=== PATIENT | male | born 1985 | race Caucasian/White ===

== ENCOUNTER 2019-02-12 15:24 | Emergency (ER) | payer MEDICAID ==
[~2019-02-12] VITALS: Wt 89.0 kg
[2019-02-12] MEDS ORDERED: SOD CHLORIDE 0.9% 1,000 ML IV STA (20:08)
[2019-02-12] MEDS ORDERED: KETOROLAC 15 MG INJ IV STA (20:08)
[2019-02-12] MEDS ORDERED: IBUP-1542 PO (21:29)
--- NOTE | 2019-02-12 22:00 | ERD ---
ER Documentation Chief Complaint Chief Complaint LEFT TOE PAIN HPI 33-year-old homeless man complains of generalized weakness today and falling. He states when he fell he injured his left foot but does not recall exactly how. He denies any direct trauma to the foot and denies any cars running over his foot. He has been ambulating today after the injury. He denies chest pain or shortness of breath, no vomiting or diarrhea, no blood per rectum or melena. ROS All systems reviewed and are negative except as per history of present illness. Medications Home Meds Active Scripts Ibuprofen* (Motrin*) 600 Mg Tab, 600 MG PO Q8 PRN for PAIN AND/OR INFLAMMATION, #30 TAB Prov:KAREEN PALMA MD 02/12/19 PMhx/Soc Medical and Surgical Hx: pt denies Medical Hx, pt denies Surgical Hx Hx Alcohol Use: No Hx Substance Use: Yes (MARIJUANA) Hx Tobacco Use: Yes Smoking Status: Current every day smoker FmHx Family History: No diabetes Physical Exam Vitals Vital Signs Date Temp Pulse Resp B/P (MAP) Pulse Ox O2 O2 Flow FiO2 Time Delivery Rate 02/12/19 98.1 78 18 127/76 100 Room Air 19:36 (93) 02/12/19 98.1 89 18 130/78 99 15:35 (95) Physical Exam Const: No acute distress appears dehydrated, afebrile HEENT: Dry mucous membranes, pink conjunctive a Resp: Clear to auscultation bilaterally Cardio: Regular rate and rhythm, no murmurs Abd: Soft, non tender, non distended. thank you Skin: No petechiae or rashes. Soft tissue edema to the dorsal aspect of both feet but no erythema, no abrasions, no lacerations noted Ext: No cyanosis, or edema. 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 Neur: Awake and alert x3, no focal deficits or facial asymmetry, pupils equal round reactive to light Psych: Normal Mood and Affect Result Diagram: 02/12/19201902/12/192019 Results 24 hrs Laboratory Tests Test 02/12/19 20:20 White Blood Count 10.5 10^3/ul Red Blood Count 4.28 10^6/ul Hemoglobin 13.3 g/dl Hematocrit 40.3 % Mean Corpuscular Volume 94.2 fl Mean Corpuscular Hemoglobin 31.1 pg Mean Corpuscular Hemoglobin Concent 33.0 g/dl Red Cell Distribution Width 12.5 % Platelet Count 218 10^3/UL Mean Platelet Volume 9.4 fl Immature Granulocytes % 0.400 % Neutrophils % 68.3 % Lymphocytes % 16.7 % Monocytes % 8.3 % Eosinophils % 6.0 % Basophils % 0.3 % Nucleated Red Blood Cells % 0.0 /100WBC Immature Granulocytes # 0.040 10^3/ul Neutrophils # 7.1 10^3/ul Lymphocytes # 1.8 10^3/ul Monocytes # 0.9 10^3/ul Eosinophils # 0.6 10^3/ul Basophils # 0.0 10^3/ul Nucleated Red Blood Cells # 0.0 10^3/ul Sodium Level 143 mmol/L Potassium Level 3.2 mmol/L Chloride Level 106 mmol/L Carbon Dioxide Level 30 mmol/L Anion Gap 7 Blood Urea Nitrogen 12 mg/dl Creatinine 0.68 mg/dl Est Glomerular Filtrat Rate mL/min > 60 mL/min Glucose Level 68 mg/dl Calcium Level 8.5 mg/dl Current Medications Medications Dose Sig/Bernardino Start Time Status Last (Trade) Ordered Route PRN Stop Time Admin Dose Reason Admin Sodium 1,000 ml @ Q1H STAT 02/12/19 DC 02/12/19 Chloride 1,000 mls/hr IV 20:08 20:29 02/12/19 21:07 Ketorolac 15 mg ONCE STAT 02/12/19 DC 02/12/19 Tromethamine IV 20:08 20:32 (Toradol) 02/12/19 20:09 [facility] IV line was established patient was placed on case monitor rhythm strip revealed a sinus rhythm at about 80 bpm with upright P and T waves. Patient was afebrile I administered 1 L normal saline IV for dehydration and Toradol 15 mg IV x1 for pain. Patient was also given food and drink here in the emergency department and tolerated p.o. without difficulty. Three-view x-ray of the left foot performed, read by me there is transverse minimally displaced fractures of the second through fifth metatarsal necks. Some osteoarthritic changes noted as well, no other fractures or dislocation noted. Patient is able to bear weight and ambulate although he does exhibit pain when doing so so we placed him in a posterior splint to the left lower extremity and secured it with all cotton elastic bandage circumferentially. Left lower extremity was also placed in an orthopedic shoe to help with ambulation. Splint Assessment: Neurovascularly intact post splint placement with good fit. Return precautions and follow-up outpatient instructions were provided to the patient, surgical intervention is unlikely although will be determined by PMD and orthopedic surgeon. He was given addresses and phone numbers to nearby clinics which can arrange management. Patient feels much better at this time, and vital signs are normal, symptoms have improved. I did give strict instructions to return to the ED if symptoms continue or worsen, patient will otherwise follow-up with primary care physician. Patient understood instructions and agreed to plan. Disclaimer: Inadvertent spelling and grammatical errors are likely due to EHR/dictation software use and do not reflect on the overall quality of patient care. Also, please note that the electronic time recorded on this note does not necessarily reflect the actual time of the patient encounter. Departure Diagnosis: Primary Impression: Metatarsal stress fracture of left foot Encounter type: initial encounter Qualified Codes: M84.375A - Stress fracture, left foot, initial encounter for fracture Additional Impression: Dehydration Condition: Good Patient Instructions: Fracture, Foot KAREEN PALMA MD Feb 12, 2019 22:00
[2019-02-12] MEDS ORDERED: OXYC-279 PO (22:35)
[2019-02-12 22:42] VITALS: BP 115/59; PULSE 79; RESP 18
== END 2019-02-12 22:44 | disposition home or self-care (01) ==
LOC: E/R 15:24
DX: S92.322A Displaced fracture of second metatarsal bone, left foot, initial encounter for closed fracture (principal); S92.332A Displaced fracture of third metatarsal bone, left foot, initial encounter for closed fracture; S92.342A Displaced fracture of fourth metatarsal bone, left foot, initial encounter for closed fracture; S92.352A Displaced fracture of fifth metatarsal bone, left foot, initial encounter for closed fracture; F17.210 Nicotine dependence, cigarettes, uncomplicated; W18.39XA Other fall on same level, initial encounter; Y92.9 Unspecified place or not applicable
CPT/HCPCS: 36415; 73630; 80048; 85025; 96374; J1885; J7030; Z7502